=== PATIENT | female | born 1950 | race Caucasian/White ===

== ENCOUNTER 2018-06-13 08:31 | Day surgery (SDC) | payer MEDICARE, BC ==
[2018-06-13] MEDS ORDERED: MIDAZOLAM 1 MG/ML 2 ML INJ (10:22)
[2018-06-13] MEDS ORDERED: ETOMIDATE 20 MG INJ (10:22)
[2018-06-13] MEDS ORDERED: LIDOCAINE 1% (MDV) 20 ML INJ (10:23)
[2018-06-13] MEDS ORDERED: ROPIVACAINE 0.5 % 30 ML VIAL (10:23)
[2018-06-13] MEDS ORDERED: ONDANSETRON 4 MG INJ IV ×2 (10:30→13:30)
[2018-06-13] MEDS ORDERED: HYDROmorphONE 1 MG/5 ML IV SYRINGE IV (10:30)
[2018-06-13] MEDS ORDERED: hydrALAzine 20 MG INJ IV (10:30)
[2018-06-13] MEDS ORDERED: DEXAMETHASONE 4 MG/ML 5 ML INJ (10:39)
[2018-06-13] MEDS ORDERED: CEFAZOLIN 1 GM INJ (10:39)
[2018-06-13] MEDS ORDERED: ONDANSETRON 4 MG INJ (10:39)
[2018-06-13] MEDS ORDERED: EPHEDrine 50 MG INJ (10:43)
[2018-06-13] MEDS: BUPIVACAINE 0.5%/EPI (SDV) 30 ML INJ (10:58)
[2018-06-13] MEDS: LIDOCAINE 2% (MDV) 20 ML INJ (10:58)
[2018-06-13] MEDS ORDERED: ACETAMINOPHEN 325 MG TAB PO (13:30)
[2018-06-13] MEDS ORDERED: HYDROCODONE/APAP (5/325) TAB PO ×2 (13:30)
[2018-06-13] MEDS ORDERED: morphine 2 MG INJ IV (13:30)
[2018-06-13] MEDS: HYDROmorphONE 1 MG/5 ML IV SYRINGE IV (13:32)
[2018-06-13] MEDS: LABETALOL HCL 20MG INJ IV (13:33)
== END 2018-06-13 15:00 | disposition home or self-care (01) ==
LOC: SDS 08:31
DX: K43.9 Ventral hernia without obstruction or gangrene (principal); I10 Essential (primary) hypertension; I25.10 Atherosclerotic heart disease of native coronary artery without angina pectoris
CPT/HCPCS: 49652